=== PATIENT | female | born 1985 | race Caucasian/White ===

== ENCOUNTER 2016-08-06 20:58 | Inpatient (IN) | payer BC ==
[~2016-08-06] VITALS: Ht 162.6 cm; Wt 86.0 kg
[2016-08-06 21:11] VITALS: Ht 162.6 cm; Wt 86.0 kg
[2016-08-06] MEDS ORDERED: PRENTAB26 PO (21:57)
[2016-08-06] MEDS ORDERED: LACTATED RINGER'S 1000ML 1,000 ML IV PRN (23:30)
[2016-08-06] MEDS ORDERED: EpHEDrine SULFATE INJ 50 MG/ML AMP ONE (23:36)
[2016-08-06] MEDS ORDERED: FENTANYL 2MCG/ML ROPIV 1.25MG/ML 100ML BAG EPI ONE (23:36)
[2016-08-06] MEDS ORDERED: BUPIVACAINE 0.25% 30 ML VIAL ONE (23:36)
[2016-08-06] MEDS ORDERED: FENTANYL CITRATE INJ 50 MCG/1 ML 2 ML VIAL ONE (23:38)
[2016-08-06 23:46] LABS: HEMATOCRIT 34.8 % (37-47); MEAN CELL VOLUME 80.2 fL (80-100); MEAN CORPUSCULAR HEMOGLOBIN 27.2 pg (25-34); MEAN CORPUSCULAR HGB CONC 33.9 g/dl (32-36); MEAN PLATELET VOLUME 10.1 fL (7.4-10.4); PLATELET COUNT 210 K/uL (130-400); RED BLOOD COUNT 4.34 M/uL (4.2-5.4); WHITE BLOOD COUNT 9.91 K/uL (4.8-10.8)
[2016-08-07] VITALS (8 sets, daily range): BP systolic 103–121; BP diastolic 65–75; PULSE 68–85; TEMP 36.5–37.1; O2SAT 99–100
[2016-08-07] MEDS ORDERED: LACTATED RINGER'S 1000ML 500 ML IV PRN ×2 (00:34→03:03)
[2016-08-07] MEDS ORDERED: ONDANSETRON INJ 2 MG/ML 2 ML VIAL IV PRN (00:45)
[2016-08-07] MEDS ORDERED: NALBUPHINE HCL INJ 10 MG/ML AMP IV PRN (00:45)
[2016-08-07] MEDS ORDERED: EpHEDrine SULFATE INJ 50 MG/ML AMP IV PRN (00:45)
[2016-08-07] MEDS ORDERED: NALOXONE HCL INJ 0.4 MG/1 ML VIAL/CARP IV PRN (00:45)
[2016-08-07] MEDS ORDERED: DiphenhydrAMINE HCL 50 MG/ML VIAL IV PRN ×3 (00:45→15:00)
[2016-08-07] MEDS ORDERED: OXYTOCIN 30 UNITS/500ML NSS IV PRN (03:15)
[2016-08-07] MEDS ORDERED: ACETAMINOPHEN 500 MG TAB PO STA (04:45)
[2016-08-07] MEDS: LACTATED RINGER'S 1000ML 1,000 ML IV SCH (06:03)
[2016-08-07] MEDS: FENTANYL 2MCG/ML ROPIV 1.25MG/ML 100ML BAG EPI PRN ×2 (07:05→07:47)
[2016-08-07] MEDS ORDERED: LACTATED RINGER'S 1000ML 1,000 ML IV ONE (12:51)
[2016-08-07] MEDS ORDERED: CITRIC ACID/SODIUM CITRATE 15 ML UDC PO ONE (13:00)
[2016-08-07] MEDS ORDERED: CITRIC ACID/SODIUM CITRATE 15 ML UDC ONE (13:04)
[2016-08-07] MEDS ORDERED: LIDOCAINE/EPINEPHRINE 2% 1:200,000 20 ML SDV ONE (13:17)
[2016-08-07] MEDS ORDERED: ONDANSETRON INJ 2 MG/ML 2 ML VIAL ONE (13:17)
[2016-08-07] MEDS ORDERED: OXYTOCIN INJ 10 UNITS/ML VIAL ONE ×2 (13:17→14:36)
[2016-08-07] MEDS ORDERED: FENTANYL CITRATE INJ 50 MCG/1 ML 2 ML VIAL ONE (13:17)
[2016-08-07] MEDS ORDERED: MoRPHine SULFATE PF 1 MG/ML 10 ML AMP/VIAL ONE (13:17)
[2016-08-07] MEDS ORDERED: CEFAZOLIN IV 2,000 MG in DEXTROSE 5% 50ML 50 ML IV SCH (13:30)
[2016-08-07] MEDS ORDERED: KETOROLAC TROMETHAMINE 30 MG/ML VIAL ONE (14:36)
[2016-08-07] MEDS ORDERED: LANOLIN OINT EXT PRN ×2 (14:45)
[2016-08-07] MEDS ORDERED: BENZOCAINE 20% AER SPR 82.5 GM CAN EXT PRN (14:45)
[2016-08-07] MEDS ORDERED: SUPERCREAM 0.870 % 15GM JAR EXT PRN (14:45)
[2016-08-07] MEDS ORDERED: PROMETHAZINE HCL INJ 25 MG in SODIUM CHLORIDE 0.9% 50ML 50 ML IV PRN (14:45)
[2016-08-07] MEDS ORDERED: HYDROCORTISONE ACETATE 25 MG SUPP PR PRN (14:45)
[2016-08-07] MEDS ORDERED: DIPHTHERIA/TETANUS/PERTUSSIS 0.5 ML SYR/VIAL IM. ONE (14:45)
[2016-08-07] MEDS ORDERED: MAGNESIUM HYDROXIDE SUSP 30 ML UDC PO PRN (14:45)
--- NOTE | 2016-08-07 14:58 | Anesthesia Procedure Note ---
Anesthesia Epidural Removal Nt Date & Time Aug 07, 2016 at 14:58 Vital Signs Pain Intensity: 0.0 Notes Mental Status: alert / awake / arousable, participated in evaluation Nausea / Vomiting: adequately controlled Pain: adequately controlled Airway Patency, RR, SpO2: stable & adequate BP & HR: stable & adequate Hydration State: stable & adequate Neuraxial Anesthesia: was administered Anesthetic Complications: no major complications apparent, pt satisfied with anesthetic care Epidural: removed without complications, with tip intact
[2016-08-07] MEDS ORDERED: MEPERIDINE HCL 25 MG/ML CARP IV PRN (15:00)
[2016-08-07] MEDS ORDERED: MoRPHine SULFATE PF 1 MG/ML 10 ML AMP/VIAL EPI PRN (15:00)
[2016-08-07] MEDS ORDERED: MoRPHine SULFATE 2 MG/ML CARP IV PRN (15:00)
[2016-08-07] MEDS ORDERED: CONTINUE MEDICATION SCH (15:00)
[2016-08-07] MEDS ORDERED: NO NARCOTICS OR SEDATIVES SCH (15:00)
[2016-08-07] MEDS ORDERED: DC INTRASPINAL MORPHINE PRN (15:00)
[2016-08-07] MEDS ORDERED: KETOROLAC TROMETHAMINE 30 MG/ML VIAL IV. PRN (15:00)
--- NOTE | 2016-08-07 15:35 | History & Physical Bridge Note ---
H&P Re-Evaluation Bridge Note: I have examined the patient, reviewed the History & Physical and in the interval since the performance of the History & Physical I have noted the following changes of clinical significance: No changes noted
--- NOTE | 2016-08-07 15:37 | [facility] Post Operative Brief Note ---
Immediate Operative Summary Operative Date Aug 07, 2016. Pre-Operative Diagnosis Term , non reassuring heart tones , failure to descend Post-Operative Diagnosis same with delivery of living male at 1358 Procedure(s) Performed Primary low transverse Caesarean section Surgeon Dr. Bernadette Haley Pocket Assembler Surgeon(s) Dr. Erick Tse Estimated Blood Loss 600 Findings Viable male , Apgars 8/9. Normal appearing uterus, tubes, ovaries. Nuchal cord x1. Specimens a. cord blood gases b. cord blood specimen c. placenta- hold Drains ying, clear yellow urine Anesthesia redose of epidural Complication(s) None Disposition L&D
--- NOTE | 2016-08-07 15:59 | OPERATIVE REPORT ---
DATE OF OPERATION: 08/07/2016 PREOPERATIVE DIAGNOSES: 1. Term intrauterine . 2. Nonreassuring heart tones. 3. Failure to descend. POSTOPERATIVE DIAGNOSES: Same. PROCEDURE: Primary low transverse section. SURGEON: Bernadette Haley DO BENDING MACHINE OPERATOR: Dr. Tse. ESTIMATED BLOOD LOSS: 600 mL. FINDINGS: Viable male with Apgars 8 and 9. Normal appearing uterus, tubes, and ovaries. Nuchal cord x1. SPECIMENS: Cord blood gasses, cord blood specimen, and placenta. DRAINS: Carranza with clear yellow urine. ANESTHESIA: Redosing of epidural. COMPLICATIONS: None. DISPOSITION: Recovery labor and delivery. INDICATIONS FOR PROCEDURE: The patient is a 31-year-old G2, P0-0-1-0 at 40 weeks 6 days who presented with regular contractions and spontaneous labor. She progressed to complete and pushed for 3+ hours. Baby was rotated from occiput posterior position to occiput anterior position and made some progress and therefore, she was allowed to continue pushing. However, heart tracing began to show recurrent variable decelerations and all resuscitative measures category 2 tracing with persistent. Given no progress with pushing and nonreassuring heart tone and failure to descend beyond 3+ station in the pelvis, decision was made for section. Risks, benefits, alternatives were reviewed with the patient and she signed informed consent. All questions were answered to the patient and her . DESCRIPTION OF PROCEDURE: The patient was taken to the operating room where her epidural anesthesia was redosed. She was prepared and draped in the usual sterile fashion in the supine position with a leftward tilt. A timeout was confirmed. She was given 2 grams of Ancef preoperatively. A scalpel was used to make a Pfannenstiel skin incision. This was carried down to the underlying layer of the fascia. Fascia was nicked at midline and this incision was extended using both sharp and blunt dissection bilaterally. The superior aspect of the fascial incision was grasped with Aleshia clamps x2, elevated off the underlying rectus abdominus muscles and dissected bluntly. In similar fashion, the inferior aspect of the fascial incision was dissected off the underlying rectus abdominis muscles. The muscles were at midline and the peritoneum was entered bluntly digitally. This incision was extended bluntly. The bladder blade was placed using Metzenbaum scissors and Mosotho forceps. A bladder flap was created. The bladder blade was replaced. The low transverse uterine incision was made with a scalpel and this was extended cephalad caudad manually. Meconium was noted in this amniotic fluid. The was delivered from a cephalic presentation. The head delivered. Nuchal cord x1 was noted. This was easily reduced. The shoulders followed by the body were delivered. The cord was doubly clamped and cut. A spontaneous cry was heard. The baby was handed off to the waiting pediatrics team. A cord segment for gasses was obtained. Cord blood was obtained. The placenta was then manually delivered. Uterus was exteriorized and the hysterotomy incision was reapproximated using 0 Vicryl in a running locked stitch, a second layer of the same suture was used to imbricate and a [id number] was performed on top of the hysterotomy incision of 0 Vicryl to further obtain excellent hemostasis. The peritoneum was irrigated. The uterus was returned to the abdomen. Again, excellent hemostasis was noted. The fascia was closed using 0 Vicryl in a running stitch. The subcutaneous tissue was reapproximated using 2-0 plain gut and the skin was closed with subcuticular stitch using 4-0 Vicryl. The patient tolerated the procedure well and her condition at the conclusion of delivery is stable and good. I attest to the content of the Intraoperative Record and any orders documented therein. Any exceptions are noted below. CEDRICKD
--- NOTE | 2016-08-07 18:34 | Anesthesiology Progress Note ---
Anesthesia Post Op Note Date & Time Aug 07, 2016 at 18:34 Vital Signs Pain Intensity: 5.0 Notes Mental Status: alert / awake / arousable, participated in evaluation Pt Amnestic to Procedure: Yes Nausea / Vomiting: adequately controlled Pain: adequately controlled Airway Patency, RR, SpO2: stable & adequate BP & HR: stable & adequate Hydration State: stable & adequate Neuraxial Anesthesia: was administered, sensory block is resolving Anesthetic Complications: no major complications apparent
[2016-08-07] MEDS: SIMETHICONE 80 MG CHEW PO SCH ×2 (20:00→23:35)
[2016-08-07] MEDS ORDERED: OXYTOCIN INJ 20 UNITS in LACTATED RINGER'S 1000ML 1,000 ML IV SCH (21:00)
[2016-08-07] MEDS: DOCUSATE SODIUM 100 MG CAP PO SCH (23:34)
[2016-08-08] VITALS (14 sets, daily range): BP systolic 93–106; BP diastolic 58–67; PULSE 68–97; TEMP 36.4–37; O2SAT 97–100
[2016-08-08] MEDS: LACTATED RINGER'S 1000ML 1,000 ML IV SCH (04:56)
--- NOTE | 2016-08-08 06:59 | Progress Note ---
Subjective Aug 08, 2016. Subjective conversation w/ patient, physical exam Ambulation: limited ambulation Voiding: ying catheter in place Passing Gas: Yes Diet Tolerance: Clear Liquids Lochia: Small Feeding Type: Breast Feeding Pain: Incisional pain well controlled with Toradol Review of Systems Constitutional: No chills, No fever Respiratory: No cough, No shortness of breath Cardiac: No chest pain Breast: No breast pain Abdomen: No nausea, No pain, No vomiting Female : No dysuria Objective Vital Signs Date Time Temp Pulse Resp B/P Pulse Ox O2 Delivery O2 Flow Rate FiO2 08/08/16 06:00 16 99 08/08/16 05:00 18 100 08/08/16 04:00 16 100 08/08/16 03:40 37.0 75 18 103/66 99 Room Air 08/08/16 03:40 99 Room Air 08/08/16 03:00 16 99 08/08/16 02:00 16 100 08/08/16 01:00 16 99 08/08/16 00:00 16 98 08/07/16 23:25 18 100 08/07/16 23:25 100 Room Air 08/07/16 23:25 37.1 85 18 121/75 100 Room Air 08/07/16 22:00 18 99 08/07/16 21:00 18 99 08/07/16 20:00 20 99 08/07/16 19:30 37.0 76 20 103/65 Room Air 08/07/16 19:00 18 100 08/07/16 18:00 20 100 08/07/16 17:35 100 Room Air 08/07/16 17:35 36.5 68 20 108/65 100 Room Air 08/07/16 17:35 100 Room Air Physical Exam General Appearance: WELL-APPEARING, WD/WN, NO APPARENT DISTRESS Respiratory/Chest: lungs clear, normal breath sounds Cardiovascular: regular rate, rhythm, no gallop, no murmur Abdomen: non tender, soft Fundus: Firm, Relation to Umbilicus (1cm below umbilicus) Incision Description: Clean, Dry & Intact Extremities: no calf tenderness Laboratory Results Last 24 Hours Test 08/08/16 06:00 Medications Current Inpatient Medications Medications (Trade) Dose Ordered Sig/Sam Route Start Time Stop Time Status Last Admin Dose Admin Lactated Ringer's 1,000 ml @ 125 mls/hr Q8H IV 08/06/16 23:30 08/08/16 23:29 08/08/16 04:56 125 MLS/HR Lactated Ringer's (Lr 1000ml) 1,000 ml @ 999 mls/hr Q1H1M PRN IV 08/06/16 23:30 09/05/16 23:29 08/07/16 00:38 999 MLS/HR Oxytocin 30 units 30 units UD PRN IV 08/07/16 03:15 09/06/16 03:14 08/07/16 05:35 30 UNITS Lactated Ringer's (Lr 1000ml) 500 ml @ 999 mls/hr Q31M PRN IV 08/07/16 03:03 09/06/16 03:02 Oxycodone/ Acetaminophen (Percocet 5-325mg Tab) 1 tab Q4H PRN PO 08/08/16 08:00 08/22/16 07:59 Oxycodone/ Acetaminophen (Percocet 5-325mg Tab) 2 tab Q4H PRN PO 08/08/16 08:00 08/22/16 07:59 Ibuprofen 600 mg 600 mg Q4H PRN PO 08/08/16 08:00 09/07/16 07:59 Promethazine HCl/ Sodium Chloride (Phenergan Inj/ Nss 50ml) 51 ml @ 204 mls/hr Q4H PRN IV 08/07/16 14:45 08/08/16 08:00 Ondansetron HCl (Zofran Inj) 4 mg Q4H PRN IV 08/08/16 08:00 09/07/16 07:59 Prenat Multivit/ Merchandise Flow Associate/Iron/Folic Ac ( Vitamin Tab) 1 tab DAILY PO 08/08/16 08:00 09/07/16 07:59 Docusate Sodium (coLACE CAP) 100 mg BID PO 08/07/16 20:00 09/06/16 19:59 08/07/16 23:34 100 MG Magnesium Hydroxide (Milk Of Magnesia Susp) 30 ml HS PRN PO 08/07/16 14:45 09/06/16 14:44 Cocaine HCl (Supercream 0.870% Cr) BID PRN EXT 08/07/16 14:45 08/21/16 14:44 Lanolin (Lanolin Oint) PRN PRN EXT 08/07/16 14:45 09/06/16 14:44 Hydrocortisone Acetate (Anusol Hc Supp) 25 mg BID PRN ME 08/07/16 14:45 09/06/16 14:44 Benzocaine (Dermoplast Aero Spr) 1 appln PRN PRN EXT 08/07/16 14:45 09/06/16 14:44 Simethicone (Mylicon Chew Tab) 80 mg QID PO 08/07/16 17:00 09/06/16 16:59 08/07/16 23:35 80 MG Diphenhydramine HCl (Benadryl Cap) 25 mg QID PRN PO 08/07/16 14:45 08/08/16 08:00 Diphenhydramine HCl (Benadryl Inj) 25 mg QID PRN IV 08/07/16 14:45 08/08/16 08:00 Ketorolac Tromethamine (Toradol Inj) 30 mg Q6H PRN IV. 08/07/16 15:00 08/08/16 08:00 08/07/16 23:36 30 MG Meperidine HCl (Demerol Inj) 25 mg Q15M PRN IV 08/07/16 15:00 08/08/16 08:00 08/07/16 16:16 25 MG Miscellaneous Information (Dc Intraspinal Morphine) 1 ea DIRECTED PRN N/A 08/07/16 15:00 08/08/16 08:00 Miscellaneous Information (No Narcotics Or Sedatives) 1 ea UD N/A 08/07/16 15:00 08/08/16 08:00 Diphenhydramine HCl (Benadryl Cap) 50 mg HS PRN PO 08/07/16 15:00 08/08/16 08:00 Diphenhydramine HCl (Benadryl Inj) 25 mg HS PRN IV 08/07/16 15:00 08/08/16 08:00 Morphine Sulfate (Duramorph Pf Inj) 3 mg TODAY PRN EPI 08/07/16 15:00 08/08/16 08:00 Morphine Sulfate (MoRPHine SULFATE INJ) 2 mg Q6H PRN IV 08/07/16 15:00 08/08/16 08:00 Miscellaneous Information 1 ea 1 ea TODAY N/A 08/07/16 15:00 08/08/16 08:00 Oxytocin/Lactated Ringer's (Pitocin Inj/Lr 1000ml) 1,002 ml @ 125 mls/hr Q8H1M IV 08/07/16 21:00 09/06/16 20:59 08/07/16 21:09 125 MLS/HR Assessment and Plan Post-Op Day#: 1 Continue Routine Care: - Vital Signs reviewed and WNL (temp max 37.0) - Blood Type: O-, GBS- , Rubella Immune - Patient doing well clinically - Encourage Ambulation today - Advance to PO diet - Remove Ying catheter - Pain well controlled with Toradol Resident Physician Supervision Note: I interviewed and examined the patient. Discussed with Dr. Tse and agree with findings and plan as documented in the note. Any exceptions or clarifications are listed here: [None] Documented By: Rogelio Watters
[2016-08-08 07:49] LABS: BASO % 0.3 %; BASO ABS # 0.03 K/uL (0-0.2); COMPLETE YES; EOS % 0.5 %; HEMATOCRIT 30.2 % (37-47); IG% 0.3 %; LYMPH % 9.6 %; LYMPH ABS # 1.09 K/uL (1.2-3.4); MEAN CELL VOLUME 81.2 fL (80-100); MEAN CORPUSCULAR HEMOGLOBIN 27.4 pg (25-34); MEAN CORPUSCULAR HGB CONC 33.8 g/dl (32-36); MEAN PLATELET VOLUME 10.1 fL (7.4-10.4); MONO % 5.5 %; NEUT % 83.8 %; PLATELET COUNT 148 K/uL (130-400); RED BLOOD COUNT 3.72 M/uL (4.2-5.4); WHITE BLOOD COUNT 11.41 K/uL (4.8-10.8)
[2016-08-08] MEDS ORDERED: KETOROLAC TROMETHAMINE 30 MG/ML VIAL IV. PRN (08:00)
[2016-08-08] MEDS ORDERED: OXYCODONE/ACETAMINOPHEN 5-325 TAB PO PRN (08:00)
[2016-08-08] MEDS ORDERED: ONDANSETRON INJ 2 MG/ML 2 ML VIAL IV PRN (08:00)
[2016-08-08] MEDS ORDERED: PRENATAL VITAMIN TAB PO SCH (08:00)
[2016-08-08] MEDS: PRENATAL VITAMIN TAB PO SCH (08:14)
[2016-08-08] MEDS: DOCUSATE SODIUM 100 MG CAP PO SCH ×2 (08:14→20:18)
[2016-08-08] MEDS: SIMETHICONE 80 MG CHEW PO SCH ×4 (08:14→20:18)
[2016-08-08] MEDS: OXYCODONE/ACETAMINOPHEN 5-325 TAB PO PRN ×3 (08:17→20:18)
[2016-08-08] MEDS: IBUPROFEN 600 MG TAB PO PRN ×3 (08:17→20:19)
[2016-08-09] MEDS: IBUPROFEN 600 MG TAB PO PRN ×6 (00:18→22:06)
[2016-08-09] MEDS: OXYCODONE/ACETAMINOPHEN 5-325 TAB PO PRN ×6 (00:20→22:06)
[2016-08-09 06:20] LABS: HEMATOCRIT 28.6 % (37-47)
[2016-08-09 08:10] VITALS: BP 110/69; PULSE 65; TEMP 37.1; O2SAT 98
[2016-08-09] MEDS: DOCUSATE SODIUM 100 MG CAP PO SCH ×2 (09:08→20:34)
[2016-08-09] MEDS: PRENATAL VITAMIN TAB PO SCH (09:08)
[2016-08-09] MEDS: SIMETHICONE 80 MG CHEW PO SCH ×4 (09:08→20:34)
--- NOTE | 2016-08-09 11:18 | Progress Note ---
Subjective Aug 09, 2016. Subjective conversation w/ patient Ambulation: ambulating normally Voiding: no voiding problems, ying catheter in place Passing Gas: Yes Diet Tolerance: Regular Diet Lochia: Moderate Feeding Type: Breast Feeding Comment: controlled Review of Systems Constitutional: No problem reported Respiratory: No problem reported Cardiac: No problem reported Breast: No problem reported Abdomen: No problem reported Female : No problem reported Objective Vital Signs Date Time Temp Pulse Resp B/P Pulse Ox O2 Delivery O2 Flow Rate FiO2 08/09/16 08:10 98 Room Air 08/09/16 08:10 37.1 65 18 110/69 98 Room Air 08/08/16 23:45 97 Room Air 08/08/16 23:45 36.4 72 103/67 97 Room Air 08/08/16 15:30 36.9 68 20 93/58 Room Air 08/08/16 15:30 Room Air 08/08/16 12:10 36.8 82 20 106/65 Physical Exam General Appearance: WELL-APPEARING, WD/WN, NO APPARENT DISTRESS Respiratory/Chest: no respiratory distress Cardiovascular: regular rate, rhythm Abdomen: non tender, soft Fundus: Firm Incision Description: Clean, Dry & Intact Extremities: normal inspection Laboratory Results Last 24 Hours Test 08/09/16 06:00 Hemoglobin 9.5 g/dL Hematocrit 28.6 % Assessment and Plan Post-Op Day#: 2 Continue Routine Care: POD2, doing well. Patient plans to stay until tomorrow. Goals for today: continue PO hydration, ambulation today. Continue bowel stim. Anticipate discharge home tomorrow.
[2016-08-09 15:30] VITALS: BP 115/77; PULSE 66; TEMP 36.7
--- NOTE | 2016-08-09 21:40 | Discharge Instructions ---
Discharge Instructions Admission Reason for Admission: LABOR (Erick Tse MD) Discharge Discharge Diagnosis / Problem: Cesarian Section (Erick Tse MD) Discharge Goals Goal(s): Routine recovery after (Erick Tse MD) Medications Continue Dispensed Medications: supercream, dermaplast, tucks, lansinoh (Erick Tse MD) Activity Recommendations Activity Limitations: per Instructions/Follow-up section . (Erick Tse MD) Instructions / Follow-Up Instructions / Follow-Up ACTIVITY RECOMMENDATIONS: * Gradual return to full activity over the next 2-3 weeks. * No lifting - nothing heavier than baby over the next 2-3 weeks. * Do not engage in vigorous exercise, sexual activity or sports until cleared by your physician. * Do not drive or operate any motorized equipment until cleared by your physician. * You may shower/bathe daily. MEDICATIONS: For discomfort or pain, you may use Acetaminophen (Tylenol), Ibuprofen (Advil), or Naproxen (Aleve) following the package directions. For constipation you may use Colace following the package directions. BREAST CARE: If you are not breast feeding: * Wear a supportive bra 24 hours a day for one to two weeks. * Avoid stimulating your breasts and nipples as much as possible during the first few weeks after delivery. * When taking a shower, have the warm water hit your back, not breasts. * When your breasts feel full, apply ice packs. Usually three to four times a day helps ease the discomfort. * Take a mild pain medication (Tylenol / Motrin) when you are uncomfortable. If breast feeding: * Use breast milk to lubricate nipples. Lansinoh cream may be used for sore nipples. You do not need to remove cream prior to breast feeding. If using a different brand of cream, check the label for directions regarding removal of cream prior to nursing. * Wear a supportive bra. * If having problems with breasts or breast feeding, call a performance consultant or your health care provider. SPECIAL CARE INSTRUCTIONS: When you are discharged from the hospital, it is important for you to follow the instructions listed below: * During the first week at home, you should be able to care for yourself and your baby. In addition, the usual light household activities are encouraged. * Limit your activities to the way you feel. Do not try to clean the house or move furniture. Be sensible. * If you actively engage in sports and have done so up until the time of your delivery, you may resume these activities as soon as you feel able. This may take up to one month or even longer. Use good judgment. * Continue to take your vitamins for at least six weeks after the of your baby. * Your diet need not be limited unless you were on a special diet before your delivery. Breast-feeding mothers need around 2500 calories per day and at least 64-80 ounces of fluid per day (8 to 10 glasses). * You should eat foods from the four major food groups. Crash diets or fad diets are to be avoided. Eating lean meats, fresh fruits and vegetables, low-fat dairy products, high fiber foods and a regular exercise program, will help you get back to your pre- weight without putting your health at risk. * Constipation is sometimes a problem after delivery. Take a mild laxative as needed. If breast feeding, Milk of Magnesia is acceptable to use. You may use a suppository or Fleets enema. * A daily shower or tub bath is suggested. Wash incision daily with warm soapy water and pat dry. It doesn't need to be covered unless drainage is present. * A bloody vaginal discharge will usually continue until around four weeks . A small amount of bleeding may continue for as long as six weeks. Vaginal discharge changes from the bright red bleeding after delivery to pink then brownish and finally yellowish-pink before becoming white and disappearing. * Bleeding may increase with activity. Your first period may come in 4-8 weeks. If you are breast feeding, your period may be delayed even longer. * Cool (sex) can begin whenever both you and your partner feel comfortable and do not have any form of genital infection. It is recommended that you wait at least six weeks for internal and external healing to occur. If you have questions, please talk to your health care practitioner. A condom should be used to prevent infection and . * Foreplay, gentle intercourse and lubrication is very important the first several times to prevent pain. A water-based lubricant such as K-Y jelly or Astroglide may be used. * If you have RH negative blood and your baby is RH positive, you will receive RHOGAM by injection prior to discharge. The nurse will give you a card to keep with you that has the date and place that you received RHOGAM after delivery. * During your care, you had a Rubella screen done to check for the presence of rubella antibodies in your blood. If your test was negative, you will receive a Rubella vaccine prior to discharge. This vaccine may cause a fever, soreness at the injection site and flu-like symptoms. If these symptoms persist, notify your health care practitioner. is not advised for one month after a Rubella vaccine. * Verbalizes understanding of car seat law as reviewed with patient nursing. * Car Seat hand-out given and reviewed with patient by nursing. * Shaken baby information reviewed with patient by nursing. Call you doctor if: * Heavy bleeding (saturating several pads an hour) or passing clots the size of your fist. * A fever >101 degrees F (38.3 degrees C) on two occasions four hours apart and /or chills. * Unusual pain in the pelvic or vaginal areas. * Call the doctor for any increased redness, drainage or swelling around the incision and any pain unrelieved by prescribed pain medication. * "Baby Blues" lasting longer than two weeks. If you have any questions or concerns, call your health care practitioner at . FOLLOW UP VISIT: * Please call the office at to schedule a 6 week examination. It is important you keep this appointment. It is important for you to make arrangements for either yearly or twice yearly check-ups thereafter. (Erick Tse MD) Current Hospital Diet Patient's current hospital diet: Regular OB Diet (Erick Tse MD) Discharge Diet Recommended Diet: Regular Diet (Erick Tse MD) Procedures Procedures Performed: Primary low transverse Caesarean section (Erick Tse MD) Pending Studies Studies pending at discharge: no (Erick Tse MD) Medical Emergencies . Who to Call and When: Medical Emergencies: If at any time you feel your situation is an emergency, please call 911 immediately. . (Erick Tse MD) Non-Emergent Contact Non-Emergency issues call your: Partnership Marketing Manager . (Erick Tse MD) . "Provider Documentation" section prepared by Erick Tse. (Erick Tse MD) VTE Core Measure Inpt VTE Proph given/why not?: Treatment not indicated (Erick Tse MD)
[2016-08-09 23:40] VITALS: BP 107/70; PULSE 67; TEMP 36.8
[2016-08-10] MEDS: IBUPROFEN 600 MG TAB PO PRN ×3 (03:57→12:31)
[2016-08-10] MEDS: OXYCODONE/ACETAMINOPHEN 5-325 TAB PO PRN ×3 (03:58→12:30)
--- NOTE | 2016-08-10 06:39 | Progress Note ---
Subjective Aug 10, 2016. Subjective conversation w/ patient, physical exam Ambulation: ambulating normally Voiding: no voiding problems, ying catheter in place Passing Gas: Yes Diet Tolerance: Regular Diet Lochia: Small Feeding Type: Breast Feeding Pain: No pain reported this morning Review of Systems Constitutional: No chills, No fever Respiratory: No cough, No shortness of breath Cardiac: No chest pain Breast: No breast pain Abdomen: No nausea, No pain, No vomiting Female : No dysuria Objective Vital Signs Date Time Temp Pulse Resp B/P Pulse Ox O2 Delivery O2 Flow Rate FiO2 08/09/16 23:40 Room Air 08/09/16 23:40 36.8 67 18 107/70 Room Air 08/09/16 15:30 Room Air 08/09/16 15:30 36.7 66 20 115/77 Room Air 08/09/16 08:10 98 Room Air 08/09/16 08:10 37.1 65 18 110/69 98 Room Air Physical Exam General Appearance: WELL-APPEARING, WD/WN, NO APPARENT DISTRESS Respiratory/Chest: lungs clear, normal breath sounds Cardiovascular: regular rate, rhythm, no gallop, no murmur Abdomen: non tender, soft Fundus: Firm, Relation to Umbilicus (1cm below umbilicus) Incision Description: Clean, Dry & Intact Extremities: no calf tenderness Medications Current Inpatient Medications Medications (Trade) Dose Ordered Sig/Sam Route Start Time Stop Time Status Last Admin Dose Admin Lactated Ringer's (Lr 1000ml) 1,000 ml @ 999 mls/hr Q1H1M PRN IV 08/06/16 23:30 09/05/16 23:29 08/07/16 00:38 999 MLS/HR Oxytocin 30 units 30 units UD PRN IV 08/07/16 03:15 09/06/16 03:14 08/07/16 05:35 30 UNITS Lactated Ringer's (Lr 1000ml) 500 ml @ 999 mls/hr Q31M PRN IV 08/07/16 03:03 09/06/16 03:02 Oxycodone/ Acetaminophen (Percocet 5-325mg Tab) 1 tab Q4H PRN PO 08/08/16 08:00 08/22/16 07:59 08/10/16 03:58 1 TAB Oxycodone/ Acetaminophen (Percocet 5-325mg Tab) 2 tab Q4H PRN PO 08/08/16 08:00 08/22/16 07:59 Ibuprofen (Motrin Tab) 600 mg Q4H PRN PO 08/08/16 08:00 09/07/16 07:59 08/10/16 03:57 600 MG Ondansetron HCl (Zofran Inj) 4 mg Q4H PRN IV 08/08/16 08:00 09/07/16 07:59 Prenat Multivit/ Ripsaw Operator/Iron/Folic Ac ( Vitamin Tab) 1 tab DAILY PO 08/08/16 08:00 09/07/16 07:59 08/09/16 09:08 1 TAB Docusate Sodium (coLACE CAP) 100 mg BID PO 08/07/16 20:00 09/06/16 19:59 08/09/16 20:34 100 MG Magnesium Hydroxide (Milk Of Magnesia Susp) 30 ml HS PRN PO 08/07/16 14:45 09/06/16 14:44 Cocaine HCl (Supercream 0.870% Cr) BID PRN EXT 08/07/16 14:45 08/21/16 14:44 Lanolin (Lanolin Oint) PRN PRN EXT 08/07/16 14:45 09/06/16 14:44 Hydrocortisone Acetate (Anusol Hc Supp) 25 mg BID PRN MD 08/07/16 14:45 09/06/16 14:44 Benzocaine (Dermoplast Aero Spr) 1 appln PRN PRN EXT 08/07/16 14:45 09/06/16 14:44 Simethicone 80 mg 80 mg QID PO 08/07/16 17:00 09/06/16 16:59 08/09/16 20:34 80 MG Oxytocin/Lactated Ringer's (Pitocin Inj/Lr 1000ml) 1,002 ml @ 125 mls/hr Q8H1M IV 08/07/16 21:00 09/06/16 20:59 08/07/16 21:09 125 MLS/HR Assessment and Plan Post-Op Day#: 3 Continue Routine Care: - Vital Signs reviewed and WNL (temp max 36.8) - Blood Type: O-, GBS- , Rubella Immune - Patient doing well clinically - Encourage Ambulation today - Tolerating PO diet - Pain well controlled - Discharge today Resident Physician Supervision Note: I interviewed and examined the patient. Discussed with Dr. Tse and agree with findings and plan as documented in the note. Any exceptions or clarifications are listed here: POD#3, feeling well. Discharge to home. Discharge instructions discussed. RTO 6w. Documented By: Bernadette Haley
[2016-08-10] MEDS ORDERED: OXYC-57 PO (07:28)
[2016-08-10 08:00] VITALS: BP 105/65; PULSE 74; TEMP 36.8; O2SAT 99
[2016-08-10] MEDS: PRENATAL VITAMIN TAB PO SCH (08:11)
[2016-08-10] MEDS: SIMETHICONE 80 MG CHEW PO SCH ×2 (08:11→12:30)
[2016-08-10] MEDS: DOCUSATE SODIUM 100 MG CAP PO SCH (08:11)
[2016-08-10 12:50] VITALS: BP_DIAS 65; PULSE 74; TEMP 36.8
--- NOTE | 2016-08-22 02:47 | DISCHARGE SUMMARY ---
DATE OF DELIVERY: 08/07/2016 ADMISSION DIAGNOSIS: 1. Term intrauterine . DISCHARGE DIAGNOSES: Same plus non-reassuring heart tones plus failure to descend. PROCEDURE: Primary low transverse section. COURSE OF STAY: The patient presented in spontaneous labor, however, C section was performed for the above-noted diagnosis. The patient had a stable recovery and was discharged to home on postoperative day #2. FINDINGS: Viable male with Apgars 8 and 9 with normal appearing uterus, tubes and ovaries, nuchal cord x1. CONDITION ON DISCHARGE: Stable and good. ACTIVITY: Pelvic rest, no heavy lifting. FOLLOWUP: In the office in 2 weeks. MEDICATIONS: Please see discharge medication list.
== END 2016-08-10 13:03 | disposition home or self-care (01) | DRG 765 ==
LOC: C.OPB 20:58 → C.LD 20:58 → C.OPB 23:32 → C.OBG 08-07 17:38
PROVIDERS: ADMIT Obstetrics & Gynecology; ATTEND Obstetrics & Gynecology
PROC: 10D00Z1 Extraction of Products of Conception, Low, Open Approach (ICD-10-PCS; principal; 2016-08-07 13:17)
DX: O48.0 Post-term pregnancy (principal); O36.0130 Maternal care for anti-D [Rh] antibodies, third trimester, not applicable or unspecified; O99.354 Diseases of the nervous system complicating childbirth; Z37.0 Single live birth; G43.909 Migraine, unspecified, not intractable, without status migrainosus; O76 Abnormality in fetal heart rate and rhythm complicating labor and delivery; O69.81X0 Labor and delivery complicated by cord around neck, without compression, not applicable or unspecified; O77.0 Labor and delivery complicated by meconium in amniotic fluid; O32.4XX0 Maternal care for high head at term, not applicable or unspecified; Z3A.40 40 weeks gestation of pregnancy; Z67.41 Type O blood, Rh negative